=== PATIENT | female | born 2000 ===

== ENCOUNTER 2019-04-04 21:52 | Emergency (ER) | payer BC ==
--- NOTE | 2019-04-04 22:21 | UC ---
Throat Pain/Nasal Noe HPI - HPI Summary HPI Summary: ONSET YESTERDAY OF SORE THROAT AND SUBJECTIVE FEVER TODAY. NO COUGH, CONGESTION , EAR PAIN. NO NAUSEA/VOMITING. IS CONCERNED ABOUT STREP. - History of Current Complaint Chief Complaint: UCRespiratory Stated Complaint: SORE THROAT Time Seen by Provider: 04/04/19 22:05 Hx Obtained From: Patient Hx Last Menstrual Period: 04/03/19 Onset/Duration: Gradual Onset, Lasting Days - 1 DAY, Still Present Severity: Mild Pain Intensity: 1 Pain Scale Used: 0-10 Numeric Cough: None Associated Signs & Symptoms: Positive: Fever - Allergies/Home Medications Allergies/Adverse Reactions: Allergies Allergy/AdvReac Type Severity Reaction Status Date / Time amoxicillin Allergy Rash Verified 04/04/19 22:08 Home Medications: Home Medications Norgestimate-Ethinyl Estradiol [Sprintec 28 Day Tablet] 1 tab PO DAILY 04/04/19 [History Confirmed 04/04/19] Propranolol 10 mg TAB [Inderal 10 mg TAB] 10 mg PO Q12HR PRN 04/04/19 [History Confirmed 04/04/19] PMH/Surg Hx/FS Hx/Imm Hx Previously Healthy: Yes - Surgical History Surgical History: None - Family History Known Family History: Positive: Non-Contributory - Social History Alcohol Use: Occasionally Substance Use Type: Marijuana Substance Use Comment - Amount & Last Used: occasionally Smoking Status (MU): Never Smoked Tobacco Review of Systems All Other Systems Reviewed And Are Negative: Yes Constitutional: Positive: Fever, Fatigue ENT: Positive: Sore Throat Respiratory: Positive: Negative Cardiovascular: Positive: Negative Gastrointestinal: Positive: Negative Physical Exam Triage Information Reviewed: Yes Appearance: Well-Appearing, No Pain Distress, Well-Nourished Vital Signs: Initial Vital Signs Temp 98.9 F 04/04/19 22:04 Pulse 93 04/04/19 22:04 Resp 16 04/04/19 22:04 BP 123/83 04/04/19 22:04 Pulse Ox 98 04/04/19 22:04 Vital Signs Reviewed: Yes Eyes: Positive: Conjunctiva Clear ENT: Positive: Hearing grossly normal, Pharynx normal, TMs normal, Tonsillar exudate - SOME MINIMAL WHITE EXUDATE. Negative: Tonsillar swelling, Muffled voice, Hoarse voice Neck: Positive: Supple, Nontender, No Lymphadenopathy Respiratory Exam: Normal Cardiovascular Exam: Normal Abdomen Description: Positive: Soft Musculoskeletal: Positive: No Edema Neurological: Positive: Alert Psychological: Positive: Age Appropriate Behavior Skin: Negative: Rashes Throat Pain/Nasal Course/Dx - Course Course Of Treatment: STREP NEGATIVE. LIKELY VIRALLY MEDIATED PHARYNGITIS. NO ANTIBIOTICS TODAY. REST, HYDRATE, OTC MEDS NEEDED. FOLLOW-UP IF NOT IMPROVING EXPECTED. - Differential Dx/Diagnosis Provider Diagnosis: Acute pharyngitis Discharge ED - Sign-Out/Discharge Documenting (check all that apply): Patient Departure All imaging exams completed and their final reports reviewed: No Studies - Discharge Plan Condition: Stable Disposition: HOME Patient Education Materials: Pharyngitis (ED) Referrals: [facility] @ [Outside] - If Needed Additional Instructions: STREP NEGATIVE. YOUR SYMPTOMS ARE LIKELY VIRALLY MEDIATED AND SHOULD RESOLVE ON THEIR OWN WITH TIME. NO INDICATION FOR ANTIBIOTICS AT PRESENT. REST, HYDRATE, OTC MEDS NEEDED. SEEK FOLLOW-UP IF YOU ARE NOT IMPROVING OVER THE NEXT 1-2 WEEKS. - Billing Disposition and Condition Condition: STABLE Disposition: Home
== END 2019-04-04 22:22 | disposition home or self-care (01) ==
LOC: UCEAST 21:52
DX: J02.9 Acute pharyngitis, unspecified (principal); R53.83 Other fatigue; Z88.0 Allergy status to penicillin
CPT/HCPCS: 87651; 99201; G0463